=== PATIENT | male | born 1980 | race Caucasian/White ===

== ENCOUNTER 2016-09-21 22:47 | Emergency (ER) | payer OTHER ==
[2016-09-21] MEDS ORDERED: ONDANSETRON 4 MG/2 ML VIAL IVP ONE (23:02)
[2016-09-21] MEDS ORDERED: Sodium Chloride 0.9% 1,000 ML PRIMARY IV ONE (23:02)
[2016-09-21] MEDS ORDERED: KETOROLAC 15 MG/1 ML VIAL IVP ONE (23:02)
--- NOTE | 2016-09-21 23:10 | PDOC ---
Abdomen/Flank HPI - General Chief Complaint: Abdomen Pain Stated Complaint: abd pain Date Seen by Provider: 09/21/16 Time Seen by Provider: 23:04 Source: POSITIVE: Patient Exam Limitations: POSITIVE: No limitations Nurse's Notes Reviewed & Considered: Yes - History of Present Illness Initial Comments: This very pleasant 36-year-old male comes in today with a chief complaint of abdominal pain. Patient with abdominal pain that is predominantly in the lower abdomen and pelvis with a sensation of fullness, diarrhea, difficulty voiding urine, nausea vomiting, and his symptoms seem to be cyclic. In addition he has some complaints of left-sided chest wall pain with tenderness to palpation under his left breast and lateral pectoralis major margin. Patient states his symptoms have been ongoing for quite some time he is unsure of the exact length of time, but that symptoms are getting worse and lasting longer. He denies any fever but does have occasional sweats. No headache, no chest pain or shortness of breath, no myalgias or arthralgias. Body Location Affected: REPORTS: Chest, Abdomen Timing: REPORTS: Intermittent, Getting Worse Duration: Unknown Severity: Moderate Quality: REPORTS: Cramping, "Pain", Stabbing, Throbbing Abdominal Pain Onset Location: REPORTS: RLQ, LLQ, Suprapubic Abdominal Pain Radiation: REPORTS: RUQ, LUQ, Epigastric Context: REPORTS: None Modifying Factors: improves with: Nothing Associated Symptoms: REPORTS: Diaphoresis, Loss of Appetite, Nausea, Vomiting, Diarrhea Similar Symptoms Previously: No Recent Care Received: REPORTS: Denies Any Prior Injuries Related to Current Complaint?: No - Patient Home Medications Home Medications: Home Medications Cetirizine HCl [Zyrtec] 10 mg PO PRN #30 cap 07/29/14 Fluticasone Propionate [Flonase Allergy Relief] 2 spr RUSTY DAILY #1 spr Albuterol Sulfate [Ventolin Hfa] 2 puff INH Q4-6H #1 inh 08/11/15 Colesevelam HCl [Welchol] Sample #36 10/13/15 Lipase/Protease/Amylase [Sarahp Dr 25,000 Units Capsule] Sample #1 10/13/15 Varenicline Tartrate [Chantix] 1 tab PO BID #60 tab 10/13/15 Colesevelam HCl [Welchol] 3 tab PO BID #540 tab 10/17/15 Lipase/Protease/Amylase [Zenpep Dr 25,000 Units Capsule] 1 each PO BID #180 cap 10/17/15 Varenicline Tartrate [Chantix] 1 tab PO ASDIR #1 tab 10/17/15 Varenicline Tartrate [Chantix] 1 tab PO BID #60 tab 10/17/15 - Patient Allergies Allergies/Adverse Reactions: Allergies Allergy/AdvReac Type Severity Reaction Status Date / Time No Known Allergies Allergy Unverified 10/13/15 11:01 Past Medical History - heen HEENT History: Denies History Cardiovascular History: Denies History Respiratory History: Denies History Gastrointestinal History: Denies History Genitourinary History: Denies History Endocrine History: Denies History Musculoskeletal History: Other (please comment) (Surgery to her left shoulder) Neurological History: Denies History Blood Disorders: Denies History Psychiatric History: Denies History Cancer History: Denies History History of MDRO: No History of Other Communicable Diseases: No History of Exposure to Communicable Disease: No Alcohol Use: Rarely Substance Use Type: None Previous Surgical History: Yes Type / Date of Surgery: Cholecystectomy, appendectomy, left shoulder Significant Family History: No pertinent family hx ROS - Limitations ROS Limitations: No Limitations Constitution: REPORTS: Diaphoresis Cardiovascular: REPORTS: Denies Cardiac Symptoms Respiratory: REPORTS: Denies Resp Symptoms Neurological: REPORTS: Denies Neuro Symptoms Gastrointestinal: REPORTS: Abdominal Pain, Nausea, Vomitting, Diarrhea Endocrine: REPORTS: Fatigue Musculoskeletal: REPORTS: Denies MS Symptoms Genitourinary: REPORTS: Difficulty Urinating Eyes: REPORTS: Denies Symptoms ENT: REPORTS: Denies Symptoms Skin: REPORTS: Denies Skin Symptoms Lympathic: REPORTS: Denies Lympathic Symptoms Immunologic: POSITIVE: Denies Symptoms Psychiatric: POSITIVE: Denies Psych Symptoms Abdominal/Flank Pain PE - General Appearance General Appearance: POSITIVE: Alert, Cooperative, No Acute Distress, No Evidence of Trauma - HEENT HEENT: POSITIVE: Head Inspection Nml, Eyes Inspection Nml, Ears Inspection Nml, Nose Inspection Nml, Oral/Dental Inspect. Nml, Pharynx Inspect. Nml, PERRL, EOMI - Neck Neck: POSITIVE: Normal Inspection, No Apparent Injury - Respiratory Respiratory: POSITIVE: No Respiratory Distress, Breath Sounds Normal, Chest Non- Tender - Cardiovascular Cardiovascular: POSITIVE: Regular Rate and Rhythm, Heart Sounds Normal, Equal Pulses, Strong Pulses Peripheral Pulses: Radial (R): 4+ - Chest Chest: POSITIVE: Tender (Left anterior lateral ribs at the level of the mammillary fold.) - Abdomen Abdomen: Soft: (All Quadrants), Normal Bowel Sounds: (All Quadrants), No Guarding: (All Quadrants), No Rebound: (All Quadrants), No Palpable Pulse: (All Quadrants), No Palpabale Mass: (All Quadrants), No Distention: (All Quadrants), Tenderness Noted: (RLQ), (LLQ) - Back Back: POSITIVE: Normal Inspection - Skin Skin: POSITIVE: Intact, Normal For Race, Warm, Dry, No Rash - Extremities Extremity: Non-Tender: (All Extremities), Normal ROM: (All Extremities), Normal Inspection: (All Extremities), Pelvis Stable: (All Extremities) - Neurological Neurological: POSITIVE: Oriented X3, Motor Normal, Sensation Normal - Psychological Psychiatric: POSITIVE: Affect Appropriate, Mood Appropriate Abdomen Progress - Results Reviewed by me Xrays/CTs/US Reviewed by me: Yes Discussed with Radiologist: Yes Lab Results Reviewed: Yes Lab Results:: Laboratory Results 09/21/16 Range/Units 23:00 WBC 6.74 (4.8-10.8) 10^3/uL RBC 5.33 (4.70-6.10) 10^6/uL Hgb 15.0 (14.0-18.0) g/dL Hct 44.0 (42.0-52.0) % MCV 82.6 (80-90) FL MCH 28.1 (27-31) PG MCHC 34.1 (33-37) g/dL RDW Std Deviation 39.9 (39-50) fL RDW Coeff of Dutch 13.3 (11.5-14.5) % Plt Count 334 (140-350) 10*3/uL MPV 10.5 (7.4-12.2) FL Immature Gran % (Auto) 0.1 (0-5) % Neut % (Auto) 53.3 (50-80) % Lymph % (Auto) 31.9 (10-50) % Meeker % (Auto) 9.8 (5-15) % Eos % (Auto) 4.0 (0-8) % Baso % (Auto) 0.9 (0-1) % Immature Gran # (Auto) 0.01 10*3/UL Neut # (Auto) 3.59 10*3/UL Lymph # (Auto) 2.15 10*3/uL Meeker # (Auto) 0.66 (0.3-0.8) 10*3/UL Eos # (Auto) 0.27 10*3/UL Baso # (Auto) 0.06 10*3/UL WBC Morphology Comment Normal morphology (NORM) Plt Morphology Comment Normal morphology (NORM) RBC Morph Comment Normal morphology (NORM) ESR 7 (0-15) MM/HR D-Dimer 0.19 (0.00-0.59) mg/L Sodium 139 (135-145) meq/L Potassium 3.4 L (3.8-5.2) meq/L Chloride 105 (98-112) meq/L Carbon Dioxide 25 (23-33) meq/L Anion Gap 9 (5-20) BUN 11 (7-22) mg/dL Creatinine 0.9 (0.70-1.50) mg/dL Estimated GFR > 60 (>60 ml/min/1.73m(2)) BUN/Creatinine Ratio 12.22 (6-20) Glucose 90 (78-110) mg/dL Calculated Osmolality 286.0 (267-292) mOsm/kg Calcium 9.1 (8.7-10.7) mg/dL Magnesium 2.0 (1.6-2.4) mg/dL Total Bilirubin 0.7 (0.3-1.2) mg/dL AST 25 (21-57) IU/L ALT 38 (21-72) IU/L Alkaline Phosphatase 83 (38-126) IU/L Troponin I < 0.012 (< 0.040) ng/mL C-Reactive Protein 0.5 (0.0-0.9) mg/dL Total Protein 7.2 (6.1-8.0) g/dL Albumin 4.4 (3.5-4.8) g/dL Globulin 2.8 (2.50-4.10) g/dL Albumin/Globulin Ratio 1.50 (1.3-2.0) mg/g TSH 2.40 (0.2700-4.2000) uIU/mL Free T4 1.06 (0.93-1.71) ng/dL - Patient's Progress Re-examine Time: 01:55 Status: POSITIVE: Improved MDM / ED Course: Patient was evaluated, an IV started, blood drawn and sent to the lab for studies, radiographic examinations and EKG examinations were obtained. Findings: EKG per my interpretation shows normal sinus rhythm. CT scan of his abdomen shows mild descending colon and sigmoid colon inflammation suggestive of inflammatory versus infective colitis. CBC is within normal limits. Comprehensive metabolic panel is within normal limits. Urinalysis is negative. Chest x-ray normal chest radiograph with no acute cardiopulmonary decompensation. Assessment: Colitis Plan: Discharge home prescriptions for ciprofloxacin, Flagyl, sulfasalazine, and GI consult. - Consult Counseled: POSITIVE: Patient, RE: Lab Results, RE: Radiology Results, RE: DX, RE : Need for F/U - CP/AMI Quality Measure Initiative: CP/AMI: POSITIVE: EKG Patient Care Time - Estimated PCT Patient Care Time (In Minutes): 45 Vital Signs - VS Reviewed Vital Signs Reviewed: Yes Discharge Clinical Impression: Abdominal pain, Colitis Discharge Disposition: Discharged to Home Condition: Stable Patient Instructions Given at Discharge: Colitis (ED)
[2016-09-21 23:11] LABS: BASOPHILS # (AUTO) 0.06 10*3/UL; BASOPHILS % (AUTO) 0.9 % (0-1); EOSINOPHILS # (AUTO) 0.27 10*3/UL; LYMPHOCYTES # (AUTO) 2.15 10*3/uL; MEAN CORPUSCULAR HEMOGLOBIN 28.1 PG (27-31); MEAN CORPUSCULAR HGB CONC 34.1 g/dL (33-37); MEAN CORPUSCULAR VOLUME 82.6 FL (80-90); MEAN PLATELET VOLUME 10.5 FL (7.4-12.2); MONOCYTES # (AUTO) 0.66 10*3/UL (0.3-0.8); MONOCYTES % (AUTO) 9.8 % (5-15); NEUTROPHILS # (AUTO) 3.59 10*3/UL; NEUTROPHILS % (AUTO) 53.3 % (50-80); RED BLOOD COUNT 5.33 10^6/uL (4.70-6.10)
[2016-09-21 23:15] LABS: PLATELET MORPHOLOGY COMMENT NORMAL MORPHOLOGY (NORM); RBC MORPHOLOGY COMMENT NORMAL MORPHOLOGY (NORM); WBC MORPHOLOGY COMMENT NORMAL MORPHOLOGY (NORM)
--- NOTE | 2016-09-21 23:17 | EKG ---
[address] [address] Measurements Intervals Earth Rate: 81 P: 60 IL: 164 QRS: -13 QRSD: 100 T: 30 QT: 372 QTc: 409 Interpretive Statements SINUS RHYTHM No previous ECG available for comparison Electronically Signed On 09-22-16 08:34:36 MDT by John Abraham MD [email or web address]
[2016-09-21 23:22] LABS: BLOOD UREA NITROGEN 11 mg/dL (7-22); BUN/CREATININE RATIO 12.22 (6-20); C-REACTIVE PROTEIN 0.5 mg/dL (0.0-0.9); CALCIUM 9.1 mg/dL (8.7-10.7); EST GLOMERULAR FILTRATION > 60 (>60 ml/min/1.73m(2)); SERUM ALBUMIN 4.4 g/dL (3.5-4.8)
[2016-09-21 23:40] LABS: FREE T4 (FREE THYROXINE) 1.06 ng/dL (0.93-1.71)
[2016-09-21 23:59] LABS: ERYTHROCYTE SEDIMENTATION RATE 7 MM/HR (0-15)
--- NOTE | 2016-09-22 01:22 | DI ---
HISTORY: CP. COMPARISON: None. FINDINGS: The heart does not appear enlarged. There is no evidence of an acute infiltrate or consol idation. No pleural effusions are identified. The visualized osseous structures appear intact, and there is no evidence of a pneumothorax. IMPRESSION: 1. No acute cardiopulmonary pathology identified.
--- NOTE | 2016-09-22 01:33 | DI ---
HISTORY: Abdominal pain with diarrhea and vomiting. COMPARISON: None. TECHNIQUE: Contiguous axial enhanced images of the abdomen and pelvis were obtained from the lung ba ses through the ischial tuberosities. The images were then submitted for interpretation. FINDINGS: There is no evidence of a consolidation, effusion or pneumothorax in the visualized portio ns of the lungs. No lower mediastinum CT abnormality is identified. There is no CT evidence of a liver lesion and no intrahepatic ductal dilatation. There is no evidenc e of gallbladder wall thickening or stones. No pericholecystic fluid or stranding is identified. Th e pancreas, spleen, and adrenals reveal no CT abnormalities. The kidneys and collecting system demon strate no lesion, hydronephrosis or calcification. There is no genitourinary CT abnormality. Mild distal descending/proximal sigmoid wall thickening. There is no small bowel dilatation or bowel wall thickening. No adenopathy, mass, free fluid or free air is noted. There is no significant athe rosclerotic change. There are no lytic or blastic lesions, nor acute fracture or dislocation. The superficial soft tissu es are normal. IMPRESSION: 1. Mild distal descending/proximal sigmoid wall thickening, correlate for infectious vs noninfectious inflammatory colitis.
[2016-09-22] MEDS ORDERED: metroNIDAZOLE Tab 500 MG TAB PO ONE (01:44)
[2016-09-22] MEDS ORDERED: CIPROFLOXACIN 500 MG TABLET PO ONE (01:45)
[2016-09-22 01:53] LABS: BILIRUBIN,URINE NEGATIVE (NEG); CLARITY,URINE CLEAR (CLEAR); COLOR,URINE YELLOW; GLUCOSE, URINE (UA) NEGATIVE (NEG); NITRATE,URINE NEGATIVE (NEG); OCCULT BLOOD,URINE NEGATIVE (NEG); PH,URINE 5.5 (5.0-8.5); PROTEIN,URINE NEGATIVE (NEG); UROBILINOGEN,URINE 0.2 EU/dL (0.2)
[2016-09-22 01:57] LABS: URINE SAMPLE TYPE CLEAN CATCH URINE
[2016-09-22 05:54] VITALS: RESP 18; TEMP 97.4
== END 2016-09-22 02:03 | disposition home or self-care (01) ==
LOC: ER 22:47
DX: K52.9 Noninfective gastroenteritis and colitis, unspecified (principal); R19.7 Diarrhea, unspecified; R11.2 Nausea with vomiting, unspecified; R07.9 Chest pain, unspecified; R53.83 Other fatigue; R10.84 Generalized abdominal pain
CPT/HCPCS: 71020; 74177; 80053; 81003; 83735; 84439; 84443; 84484; 85025; 85379; 85652; 86140; 93005; 93010; 94003; 96361; 96374; 96375; 99284 ×2; J1885; J2405; J7030